=== PATIENT | female | born 1980 | race Caucasian/White ===

== ENCOUNTER 2016-10-07 14:10 | Emergency (ER) | payer SELFPAY ==
[~2016-10-07] VITALS: Ht 165.1 cm; Wt 100.0 kg
[2016-10-07 15:06] VITALS: BP 130/78
[2016-10-07] MEDS ORDERED: ONDANSETRON HCL 4 MG TABLET PO ONE (15:15)
[2016-10-07] MEDS ORDERED: HYDROmorphone 2 MG/ML SYRINGE IM ONE (15:15)
[2016-10-07] MEDS ORDERED: KETOROLAC TROMETHAMINE 60 MG/2 ML VIAL IM ONE (15:15)
== END 2016-10-07 15:32 | disposition home or self-care (01) ==
LOC: EMS 14:12
DX: M54.5 Low back pain (principal)
CPT/HCPCS: 96372; 99284; J1170; J1885; Q0162